=== PATIENT | male | born 1965 | race Caucasian/White ===

== ENCOUNTER 2022-09-18 10:37 | Emergency (ER) | payer SELFPAY ==
[2022-09-18 11:07] LABS: BASOPHILS PERCENT AUTO 0.4 % (0.0-1.5); EOSINOPHILS ABSOLUTE AUTO 0.2 K/uL (0.0-0.7); EOSINOPHILS PERCENT AUTO 2.3 % (0.0-7.0); HEMATOCRIT 49.4 % (38.0-50.0); HEMOGLOBIN 16.4 g/dL (13.0-17.0); LYMPHOCYTES ABSOLUTE AUTO 1.4 K/uL (0.6-2.4); MEAN CORPUSCULAR HEMOGLOBIN 27.9 pg (27.0-32.0); MEAN CORPUSCULAR HGB CONC 33.2 g/dL (31.0-37.0); MEAN CORPUSCULAR VOLUME 84.2 fL (80.0-98.0); MONOCYTES ABSOLUTE AUTO 0.4 K/uL (0.0-0.8); MONOCYTES PERCENT AUTO 5.1 % (0.0-15.0); NEUTROPHILS ABSOLUTE AUTO 5.7 K/uL (1.4-5.7); NEUTROPHILS PERCENT AUTO 74.2 % (48.0-80.0); PLATELET COUNT,PLT 213 K/uL (150-400); RED BLOOD CELL COUNT 5.87 M/uL (4.50-5.90); WHITE BLOOD CELL COUNT,WBC 7.67 K/uL (4.0-11.0)
[2022-09-18] MEDS ORDERED: Sodium Chloride 0.9% 10 ML Syringe FLUSH PRN (11:44)
[2022-09-18] MEDS ORDERED: Sodium Chloride 0.9% 2.5 ML Syringe FLUSH PRN (11:44)
[2022-09-18 11:48] LABS: ALBUMIN 3.7 g/dL (3.4-5.0); BILIRUBIN TOTAL 0.4 mg/dL (0.2-1.0); CALCIUM 8.8 mg/dL (8.5-10.1); CARBON DIOXIDE,CO2 30.9 mmol/L (21.0-32.0); CREATININE 1.1 mg/dL (0.8-1.3); EST CRCL DRUG DOSING (CG) 53.03 mL/min; POTASSIUM,K 4.1 mmol/L (3.5-5.1); PROTEIN TOTAL,TP 7.4 g/dL (6.4-8.2)
== END 2022-09-18 13:24 | disposition home or self-care (01) ==
LOC: MW.ED 10:37
DX: M54.12 Radiculopathy, cervical region (principal); I10 Essential (primary) hypertension; J44.9 Chronic obstructive pulmonary disease, unspecified; F17.210 Nicotine dependence, cigarettes, uncomplicated; Z79.899 Other long term (current) drug therapy
CPT/HCPCS: 36415; 71045; 80053; 83605; 83690; 84484; 85025; 93005; 99284; J3490; 99283

== ENCOUNTER 2022-12-13 05:52 | Inpatient (IN) | payer OTHER ==
[2022-12-13 06:10] LABS: BASOPHILS ABSOLUTE AUTO 0.06 K/uL (0.00-0.20); BASOPHILS PERCENT AUTO 0.7 % (0.0-1.0); EOSINOPHILS ABSOLUTE AUTO 0.19 K/uL (0.00-0.45); EOSINOPHILS PERCENT AUTO 2.2 % (0.0-6.0); HEMATOCRIT 52.3 % (42.0-52.0); HEMOGLOBIN 17.1 g/dL (14.0-18.0); LYMPHOCYTES ABSOLUTE AUTO 3.32 K/uL (1.00-4.80); LYMPHOCYTES PERCENT AUTO 38.2 % (24.0-44.0); MEAN CORPUSCULAR HEMOGLOBIN 27.7 pg (28.0-32.0); MEAN CORPUSCULAR HGB CONC 32.7 g/dL (32.0-36.0); MEAN CORPUSCULAR VOLUME 84.8 fL (83.0-99.0); MEAN PLATELET VOLUME 10.4 fL (9.4-12.4); MONOCYTES ABSOLUTE AUTO 0.75 K/uL (0.00-0.80); MONOCYTES PERCENT AUTO 8.6 % (0.0-8.0); NEUTROPHILS ABSOLUTE AUTO 4.4 K/uL (1.8-7.7); NEUTROPHILS PERCENT AUTO 50.1 % (41.0-71.0); PLATELET COUNT,PLT 248 K/uL (150-400); RED BLOOD CELL COUNT 6.17 M/uL (4.52-5.90)
[2022-12-13] MEDS ORDERED: Lactated Ringers 1,000 ML IV SCH (06:15)
[2022-12-13] MEDS ORDERED: Iopamidol 755 MG/ML 500 ML Multipack Bottle IVPUSH ONE (06:15)
[2022-12-13 06:47] LABS: A/G RATIO 0.9 (0.9-1.6); ALANINE AMINOTRANSFERASE,ALT 50 IU/L (14-63); ALBUMIN 3.9 g/dL (3.4-5.0); ALKALINE PHOSPHATASE 188 U/L (46-116); ASPARTATE AMNIOTRANSFERASE,AST 22 IU/L (15-37); BILIRUBIN TOTAL 0.2 mg/dL (0.2-1.0); BLOOD UREA NITROGEN,BUN 23 mg/dL (7.0-18.0); CALCIUM 9.2 mg/dL (8.5-10.1); CARBON DIOXIDE,CO2 31.9 mmol/L (21.0-32.0); CHLORIDE,CL 102 mmol/L (98-107); CREATININE 1.1 mg/dL (0.8-1.3); EST CRCL DRUG DOSING (CG) 87.18 mL/min; GLUCOSE RANDOM 118 mg/dL (74-106); LIPASE 50 U/L (16-77); MAGNESIUM 2.3 mg/dL (1.8-2.4); POTASSIUM,K 4.2 mmol/L (3.5-5.1); PROTEIN TOTAL,TP 8.2 g/dL (6.4-8.2); SODIUM,NA 138 mmol/L (136-148); TSH ULTRASENSITIVE 1.92 uIU/mL (0.36-3.74)
[2022-12-13 06:48] LABS: ESTIMATED GFR 79 mL/min (>60); ETHANOL BLOOD MEDICAL < 3.0 mg/dL
[2022-12-13] MEDS ORDERED: niCARdipine/Normal Saline 20 MG/200 ML BAG IV SCH ×4 (07:00→09:57)
[2022-12-13] MEDS ORDERED: Lactated Ringers 1,000 ML IV ONE (08:12)
[2022-12-13] MEDS ORDERED: Iopamidol 755 MG/ML 500 ML Multipack Bottle IVPUSH STA (09:01)
[2022-12-13 09:35] LABS: AMPHETAMINES SCREEN, URINE NEGATIVE (CUTOFF=500); BARBITURATE SCREEN,URINE NEGATIVE (CUTOFF=200); BENZODIAZEPINES SCREEN,URINE NEGATIVE (CUTOFF=150); BUPRENORPHINE SCREEN,URINE NEGATIVE (CUTOFF=10); METHADONE SCREEN, URINE NEGATIVE (CUTOFF=200); METHAMPHETAMINES SCREEN, URINE NEGATIVE (CUTOFF=500); OXYCODONE SCREEN,URINE NEGATIVE (CUT0FF=100); PCP SCREEN,URINE NEGATIVE (CUTOFF=25); PROPOXYPHENE SCREEN,URINE NEGATIVE (CUTOFF=300); THC SCREEN,URINE 20 NG/ML PRESUMPTIVE POSITIVE (CUTOFF=50)
[2022-12-13] MEDS ORDERED: niCARdipine/Normal Saline 200 ML IV SCH (10:00)
[2022-12-13] MEDS: niCARdipine/Normal Saline 20 MG in Premix Bag 1 BAG IV SCH ×2 (11:35→13:17)
[2022-12-13] MEDS ORDERED: Acetaminophen 325 MG Tab PO PRN (12:33)
[2022-12-13] MEDS ORDERED: Ondansetron 4 MG/2 ML SDV IVPUSH PRN (12:33)
[2022-12-13] MEDS ORDERED: Diltiazem IR 30 MG Tab PO SCH (14:00)
[2022-12-13] MEDS: Pantoprazole 40 MG in Sodium Chloride 0.9% 10 ML IVPUSH SCH (14:16)
[2022-12-13] MEDS: Apixaban 5 MG Tab PO SCH ×2 (14:22→20:00)
[2022-12-13 14:40] LABS: HEMOGLOBIN A1C 6.2 %
[2022-12-13] MEDS: Nicotine 21 MG/24 Hr Patch TRDERM SCH (18:04)
[2022-12-13] MEDS: Diltiazem IR 30 MG Tab PO SCH (20:00)
[2022-12-13] MEDS ORDERED: Labetalol 100 MG in Sodium Chloride 0.9% 80 ML IV SCH (22:30)
[2022-12-14] MEDS: Benzocaine/Cetylpyridinium/Menthol Lozenge MUCMEM PRN ×2 (00:24→08:53)
[2022-12-14] MEDS: Diltiazem IR 30 MG Tab PO SCH ×3 (00:24→11:28)
[2022-12-14 06:50] LABS: BASOPHILS ABSOLUTE AUTO 0.05 K/uL (0.00-0.20); BASOPHILS PERCENT AUTO 0.6 % (0.0-1.0); EOSINOPHILS ABSOLUTE AUTO 0.11 K/uL (0.00-0.45); EOSINOPHILS PERCENT AUTO 1.3 % (0.0-6.0); HEMATOCRIT 44.4 % (42.0-52.0); HEMOGLOBIN 14.3 g/dL (14.0-18.0); LYMPHOCYTES PERCENT AUTO 25.1 % (24.0-44.0); MEAN CORPUSCULAR HEMOGLOBIN 27.2 pg (28.0-32.0); MEAN CORPUSCULAR HGB CONC 32.2 g/dL (32.0-36.0); MEAN CORPUSCULAR VOLUME 84.6 fL (83.0-99.0); MEAN PLATELET VOLUME 10.9 fL (9.4-12.4); MONOCYTES ABSOLUTE AUTO 0.51 K/uL (0.00-0.80); MONOCYTES PERCENT AUTO 5.8 % (0.0-8.0); NEUTROPHILS ABSOLUTE AUTO 5.9 K/uL (1.8-7.7); PLATELET COUNT,PLT 206 K/uL (150-400); RED BLOOD CELL COUNT 5.25 M/uL (4.52-5.90); WHITE BLOOD CELL COUNT,WBC 8.76 K/uL (3.9-11.3)
[2022-12-14] MEDS: Nicotine 21 MG/24 Hr Patch TRDERM SCH (08:52)
[2022-12-14] MEDS: Apixaban 5 MG Tab PO SCH (08:53)
[2022-12-14 10:59] LABS: A/G RATIO 0.9 (0.9-1.6); ALBUMIN 3.2 g/dL (3.4-5.0); BILIRUBIN TOTAL 0.2 mg/dL (0.2-1.0); CALCIUM 8.7 mg/dL (8.5-10.1); CARBON DIOXIDE,CO2 26.3 mmol/L (21.0-32.0); CREATININE 1.6 mg/dL (0.8-1.3); EST CRCL DRUG DOSING (CG) 59.94 mL/min; POTASSIUM,K 4.4 mmol/L (3.5-5.1); PROTEIN TOTAL,TP 6.7 g/dL (6.4-8.2)
[2022-12-14] MEDS ORDERED: Sodium Chloride 0.9% 500 ML IV SCH (12:30)
[2022-12-14] MEDS: Pantoprazole 40 MG in Sodium Chloride 0.9% 10 ML IVPUSH SCH (14:10)
[2022-12-14 15:13] LABS: CALCIUM 8.6 mg/dL (8.5-10.1); CARBON DIOXIDE,CO2 28.4 mmol/L (21.0-32.0); CREATININE 1.3 mg/dL (0.8-1.3); EST CRCL DRUG DOSING (CG) 73.77 mL/min; POTASSIUM,K 4.2 mmol/L (3.5-5.1)
[2022-12-14] MEDS ORDERED: Apixaban 5 MG Tab PO ONE (15:25)
== END 2022-12-14 16:35 | disposition home or self-care (01) | DRG 304 ==
LOC: MW.ED 05:52 → MW.ICU 09:59
PROVIDERS: ADMIT Family Medicine; ATTEND Family Medicine
DX: I16.0 Hypertensive urgency (principal); I26.93 Single subsegmental thrombotic pulmonary embolism without acute cor pulmonale; I10 Essential (primary) hypertension; J44.9 Chronic obstructive pulmonary disease, unspecified; R09.02 Hypoxemia; E78.5 Hyperlipidemia, unspecified; Z98.890 Other specified postprocedural states; Z87.74 Personal history of (corrected) congenital malformations of heart and circulatory system; Z87.891 Personal history of nicotine dependence
CPT/HCPCS: 36415; 70450; 70450-26; 70496; 70496-26; 70498; 70498-26; 70551; 70551-26; 71275; 71275-26; 80048; 80053; 80061; 80305-QW; 80307; 83036; 83690; 83735; 84443; 84484; 85025; 93005; 93010; 93970; 93970-26; 96365; 96366; 99285; 99285-25; A9270-GY; C9113; J3490; J7040; J7120; Q9967

== ENCOUNTER 2024-12-11 14:17 | Emergency (ER) | payer OTHER ==
[2024-12-11 15:15] LABS: BASOPHILS ABSOLUTE AUTO 0.04 K/uL (0.00-0.20); BASOPHILS PERCENT AUTO 0.5 % (0.0-1.0); EOSINOPHILS ABSOLUTE AUTO 0.15 K/uL (0.00-0.45); EOSINOPHILS PERCENT AUTO 1.9 % (0.0-6.0); IMMATURE GRAN ABSOLUTE AUTO 0.03 K/uL (0.00-0.05); IMMATURE GRAN PERCENT AUTO 0.4 % (0.0-0.4); LYMPHOCYTES ABSOLUTE AUTO 1.99 K/uL (1.00-4.80); LYMPHOCYTES PERCENT AUTO 24.6 % (24.0-44.0); MEAN PLATELET VOLUME 10.0 fL (9.4-12.4); MONOCYTES ABSOLUTE AUTO 0.56 K/uL (0.00-0.80); MONOCYTES PERCENT AUTO 6.9 % (0.0-8.0); NEUTROPHILS ABSOLUTE AUTO 5.33 K/uL (1.80-7.70); NEUTROPHILS PERCENT AUTO 65.7 % (41.0-71.0); NRBC ABSOLUTE 0.00 K/uL (0.00-0.02); NRBC PERCENT 0.0 /100WBC (0.0-0.2); PLATELET COUNT,PLT 200 K/uL (150-400); RED BLOOD CELL COUNT 6.10 M/uL (4.52-5.90); WHITE BLOOD CELL COUNT,WBC 8.10 K/uL (3.9-11.3)
[2024-12-11 15:37] LABS: A/G RATIO 0.9 (0.9-1.6); ALANINE AMINOTRANSFERASE,ALT 37.0 IU/L (14-63); ASPARTATE AMNIOTRANSFERASE,AST 26.0 IU/L (15-37); BILIRUBIN TOTAL 0.3 mg/dL (0.2-1.0); BLOOD UREA NITROGEN,BUN 28.0 mg/dL (7.0-18.0); CARBON DIOXIDE,CO2 33.1 mmol/L (21.0-32.0); CHLORIDE,CL 104.0 mmol/L (98-107); CREATININE 1.3 mg/dL (0.8-1.3); EST CRCL DRUG DOSING (CG) 72.01 mL/min; ESTIMATED GFR 64.0 mL/min (>60); GLUCOSE RANDOM 124.0 mg/dL (74-106); POTASSIUM,K 4.1 mmol/L (3.5-5.1); PROTEIN TOTAL,TP 7.4 g/dL (6.4-8.2); SODIUM,NA 143.0 mmol/L (136-148)
== END 2024-12-11 15:56 | disposition home or self-care (01) ==
LOC: MW.ED 14:17
DX: I10 Essential (primary) hypertension (principal); Z88.8 Allergy status to other drugs, medicaments and biological substances; Z79.899 Other long term (current) drug therapy; F17.200 Nicotine dependence, unspecified, uncomplicated; Z02.89 Encounter for other administrative examinations; Z91.148 Patient's other noncompliance with medication regimen for other reason
CPT/HCPCS: 36415; 80053; 85025; 99283; A9270